=== PATIENT | female | born 1955 | race Caucasian/White ===

== ENCOUNTER 2016-06-16 10:42 | Outpatient (CLI) | payer OTHER | END 2016-06-16 10:43 | disposition home or self-care (01) | DX: E05.00 Thyrotoxicosis with diffuse goiter without thyrotoxic crisis or storm (principal) ==

== ENCOUNTER 2016-08-07 08:00 | Outpatient (CLI) | payer OTHER | END 2016-08-07 23:59 | DX: E05.00 Thyrotoxicosis with diffuse goiter without thyrotoxic crisis or storm (principal) ==

== ENCOUNTER 2016-10-10 09:45 | Outpatient (CLI) | payer OTHER ==
[2016-10-10 14:40] LABS: THYROID STIMULATING HORMONE < 0.08 uIU/mL (0.34-5.60)
== END 2016-10-10 09:46 | disposition home or self-care (01) ==
LOC: LAB.N 09:45
PROVIDERS: ATTEND Nurse Practitioner
DX: E89.0 Postprocedural hypothyroidism (principal)
CPT/HCPCS: 36415; 84439; 84443

== ENCOUNTER 2016-12-12 08:00 | Outpatient (CLI) | payer OTHER ==
[2016-12-12 20:51] LABS: THYROID STIMULATING HORMONE 0.2 uIU/mL (0.34-5.60)
== END 2016-12-12 08:01 | disposition home or self-care (01) ==
LOC: LAB.N 08:00
PROVIDERS: ATTEND Internal Medicine Endocrinology, Diabetes & Metabolism
DX: E89.0 Postprocedural hypothyroidism (principal)
CPT/HCPCS: 36415; 84439; 84443

== ENCOUNTER 2017-05-04 13:17 | Outpatient (CLI) | payer OTHER | END 2017-05-04 13:18 | disposition home or self-care (01) | LOC: LAB.N 13:17 | PROVIDERS: ATTEND Internal Medicine Endocrinology, Diabetes & Metabolism | DX: E89.0 Postprocedural hypothyroidism (principal) | CPT/HCPCS: 36415; 84443 ==

== ENCOUNTER 2017-07-13 07:00 | Outpatient (CLI) | payer OTHER ==
[2017-07-13] MEDS ORDERED: BARIUM SULFATE 135 ML BOTTLE PO ONE (10:17)
[2017-07-13] MEDS ORDERED: BARIUM SULFATE 176 GM BOTTLE PO ONE (10:17)
--- NOTE | 2017-07-13 12:42 | XRAY Report ---
ESOPHAGRAM: 07/13/2017 HISTORY: Chronic sinusitis, coughing with phlegm, reflux. FINDINGS: The patient was given thin and thick barium to swallow by mouth. There is no evidence of penetration or aspiration or cricopharyngeus dysfunction. There is mild presbyesophagus with a lack of secondary stripping waves and occasional tertiary contractions. A 13 mm barium tablet passes easily through the esophagus into the stomach. No evidence of stricture, hiatal hernia, or reflux. Fluoroscopy time: 2 minutes 47 seconds Number of images: 10 IMPRESSION: MILD EARLY AGE-RELATED ESOPHAGEAL DYSMOTILITY. OTHERWISE, NEGATIVE BARIUM SWALLOW. TD: 07/13/2017 12:41 JOAN
--- NOTE | 2017-07-13 12:51 | CT Report ---
SINUS CT: 07/13/2017 HISTORY: Chronic sinusitis, deviated septum, nasal obstruction. COMPARISON: None. TECHNIQUE: Axial noncontrast images of the sinuses with coronal and sagittal reconstructions. FINDINGS: Frontal sinuses have not developed. Sphenoid sinuses are clear. Mild membrane thickening in the ethmoid sinuses bilaterally. Mild lobulated inferior bilateral maxillary sinus membrane thickening. Anterior nasal septal deviation to the right. Nasal cavity otherwise unremarkable. Nasopharyngeal soft tissues not enlarged. C1-2 and temporomandibular joints anatomically aligned. Orbits appear symmetric. No radiopaque orbital foreign body. IMPRESSION: MILD MEMBRANE THICKENING, BILATERAL MAXILLARY GREATER THAN ETHMOID SINUSES. ANTERIOR NASAL SEPTAL DEVIATION TO THE RIGHT. In accordance with CT protocol optimization, one or more of the following dose reduction techniques were utilized for this exam: automated exposure control, adjustment of mA and/or KV based on patient size, or use of iterative reconstructive technique. TD: 07/13/2017 12:49 JOAN
== END 2017-07-13 07:01 | disposition home or self-care (01) ==
LOC: DI 07:00
PROVIDERS: ATTEND Otolaryngology
DX: J32.8 Other chronic sinusitis (principal); J34.2 Deviated nasal septum; J34.89 Other specified disorders of nose and nasal sinuses; K21.9 Gastro-esophageal reflux disease without esophagitis; R05 Cough; R49.0 Dysphonia; R13.19 Other dysphagia; K22.4 Dyskinesia of esophagus
CPT/HCPCS: 70486; 74220; A9270

== ENCOUNTER 2017-08-17 08:00 | Outpatient (CLI) | payer OTHER | END 2017-08-17 08:01 | disposition home or self-care (01) | LOC: LAB.N 08:00 | PROVIDERS: ATTEND Internal Medicine Endocrinology, Diabetes & Metabolism | DX: E89.0 Postprocedural hypothyroidism (principal) | CPT/HCPCS: 36415; 84443 ==

== ENCOUNTER 2017-09-28 13:23 | Outpatient (CLI) | payer OTHER | END 2017-09-28 13:24 | disposition home or self-care (01) | LOC: LAB.N 13:23 | PROVIDERS: ATTEND Internal Medicine Endocrinology, Diabetes & Metabolism | DX: E05.90 Thyrotoxicosis, unspecified without thyrotoxic crisis or storm (principal) | CPT/HCPCS: 36415; 84443 ==

== ENCOUNTER 2018-06-08 09:13 | Outpatient (CLI) | payer OTHER ==
[2018-06-08 13:15] LABS: THYROID STIMULATING HORMONE 0.18 uIU/mL (0.34-5.60)
[2018-06-08 13:17] LABS: FREE T4 (FREE THYROXINE) 1.04 ng/dL (0.58-1.64)
== END 2018-06-08 23:59 | disposition home or self-care (01) ==
LOC: LAB.N 09:13
PROVIDERS: ATTEND Internal Medicine Endocrinology, Diabetes & Metabolism
DX: E89.0 Postprocedural hypothyroidism (principal); E05.90 Thyrotoxicosis, unspecified without thyrotoxic crisis or storm
CPT/HCPCS: 36415; 84439; 84443

== ENCOUNTER 2019-08-06 14:03 | Emergency (ER) | payer OTHER ==
[2019-08-06] MEDS ORDERED: LORazepam 2 MG/ML VIAL IVP STA (14:22)
--- NOTE | 2019-08-06 14:24 | ED Physician Documentation ---
PD HPI HEADACHE - Stated complaint Stated Complaint: SOA,VISION DISTURBANCE - Chief complaint Chief Complaint: Neuro - History obtained from History obtained from: Family - History of Present Illness Timing - onset: Other (63-year-old woman with history of frequent headaches presents accompanied by her . She has had a headache for about a week. She was seen in the [place] [facility] and prescribed zolpidem because it was thought to be due to poor sleep. Today she was complaining about visual deficits, and now has not spoken in the last 2 hours because she is visibly having a panic attack and hyperventilating.) Review of Systems Unable to obtain: Other (Too panicky to talk) PD PAST MEDICAL HISTORY - Past Medical History Past Medical History: Yes Cardiovascular: Hypertension - Present Medications Home Medications: Ambulatory Orders Medication Instructions Recorded Confirmed Aspirin [Aspir 81] 81 mg PO DAILY 08/17/12 07/26/19 Ferrous Sulfate 324 mg PO DAILY 08/17/12 07/26/19 Multivitamin [Multivitamins] 1 each PO DAILY 08/17/12 07/26/19 Levothyroxine Sodium [Synthroid] 75 mcg PO DAILY 02/24/17 07/26/19 Anagrelide HCl 1 mg PO BID #180 capsule 08/20/17 07/26/19 Loratadine [Claritin] 1 cap PO DAILY 07/26/19 07/26/19 Omeprazole 1 cap PO DAILY 07/26/19 07/26/19 Lisinopril [Prinivil] 10 mg PO DAILY 08/05/19 08/05/19 Zolpidem Tartrate 10 mg PO DAILY PM PRN 08/05/19 08/05/19 ALPRAZolam [Alprazolam] 0.5 mg PO BID PRN #15 tablet 08/06/19 - Allergies Allergies/Adverse Reactions: Allergies Allergy/AdvReac Type Severity Reaction Status Date / Time betadine AdvReac Mild Rash Uncoded 07/26/19 11:03 - Social History Does the pt smoke?: No Smoking Status: Never smoker Does the pt drink ETOH?: No Does the pt have substance abuse?: No - Immunizations Immunizations are current?: Yes - POLST Patient has POLST: No PD ED PE NORMAL - Vitals Vital signs reviewed: Yes - General General: Other (She follows commands in all 4 extremities but she is clearly hyperventilating too much to be able to talk. We are trying to slow down her breathing using talk therapy during initial evaluation which was NOT SUCCESSFUL) - HEENT HEENT: PERRL - Neck Neck: Supple, no meningeal sign, No bony TTP - Cardiac Cardiac: RRR, No murmur - Respiratory Respiratory: Other (Tachypneic but clear) - Abdomen Abdomen: Non tender - Extremities Extremities: No edema, No calf tenderness / cord - Neuro Neuro: No motor deficit, No sensory deficit Eye Opening: To Voice Motor: Obeys Commands Verbal: None GCS Score: 10 Results - Vitals Vitals: Vital Signs - 24 hr 08/06/19 08/06/19 08/06/19 14:08 14:41 15:20 Temperature 36.3 C L Heart Rate 87 86 91 Respiratory 40 H 18 16 Rate Blood Pressure 137/74 H 129/100 H 121/72 O2 Saturation 100 100 100 08/06/19 08/06/19 08/06/19 15:30 16:00 16:30 Temperature Heart Rate 86 82 77 Respiratory 15 16 21 Rate Blood Pressure 121/72 119/63 110/70 O2 Saturation 100 100 100 Oxygen O2 Source Room air - Labs Labs: Laboratory Tests 08/06/19 08/06/19 14:25 14:25 WBC 8.6 RBC 3.03 L Hgb 8.5 L Hct 26.3 L MCV 86.8 MCH 28.1 MCHC 32.3 RDW 15.3 H Plt Count 204 MPV 10.6 Neut # (Auto) 4.5 Lymph # (Auto) 2.1 [place] # (Auto) 1.2 H Eos # (Auto) 0.1 Baso # (Auto) 0.1 Absolute Nucleated RBC 0.05 Nucleated RBC % 0.6 Manual Slide Review Indicated Platelet Estimate NORMAL (130-450,000) Platelet Morphology NORMAL APPEARANCE RBC Morph Micro Appear 1+ TEARDROP CELLS Sodium 132 L Potassium 4.3 Chloride 96 L Carbon Dioxide 23 Anion Gap 13.0 BUN 27 H Creatinine 1.2 H Estimated GFR (MDRD) 46 L Glucose 112 H Calcium 9.4 Total Bilirubin 0.4 AST 28 ALT 14 Alkaline Phosphatase 92 Total Protein 8.2 Albumin 4.4 Globulin 3.8 Albumin/Globulin Ratio 1.2 Lipase 46 - Rads (name of study) CT/CTA Head Radiology: EMP read contemporaneously (normal) PD MEDICAL DECISION MAKING - ED course ED course: 63-year-old woman presents with a week of intermittent headaches, on initial evaluation she was having a panic attack and could history. After the administration of Ativan, her symptoms resolved, both headache, visual symptoms, and inability to speak. Her neurologic exam at that juncture was normal. CT angiogram of the head was normal. She has no fever, no neck stiffness. Departure - Departure Disposition: 01 Home, Self Care Clinical Impression: Anxiety attack Headache Qualifiers: Headache type: tension-type Headache chronicity pattern: acute headache Intractability: not intractable Qualified Code(s): G44.209 - Tension-type headache, unspecified, not intractable Condition: Good Record reviewed to determine appropriate education?: Yes Instructions: ED Stress React, ED Headache Tension Prescriptions: ALPRAZolam [Alprazolam] 0.5 mg PO BID PRN #15 tablet PRN Reason: anxiety or headache Comments: Followup with you primary care physician, next available appointment. Discharge Date/Time: 08/06/19 16:45
[2019-08-06] MEDS ORDERED: IOVERSOL 320 100 ML VIAL IVP ONE ×2 (14:28→15:28)
[2019-08-06 14:37] LABS: BASOPHILS # (AUTO) 0.1 10^3/uL (0.0-0.1); BASOPHILS % (AUTO) 0.6 %; EOSINOPHILS # (AUTO) 0.1 10^3/uL (0.0-0.7); EOSINOPHILS % (AUTO) 0.7 %; HGB - HEMOGLOBIN 8.5 g/dL (12.0-16.0); LYMPHOCYTES # (AUTO) 2.1 10^3/uL (1.5-3.5); LYMPHOCYTES % (AUTO) 24.1 %; MEAN CORPUSCULAR HEMOGLOBIN 28.1 pg (27.0-31.0); MEAN CORPUSCULAR HGB CONC 32.3 g/dL (32.0-36.0); MEAN CORPUSCULAR VOLUME 86.8 fL (81.0-99.0); MEAN PLATELET VOLUME 10.6 fL (7.9-10.8); MONOCYTES # (AUTO) 1.2 10^3/uL (0.0-1.0); MONOCYTES % (AUTO) 13.7 %; NEUTROPHILS # (AUTO) 4.5 10^3/uL (1.5-6.6); NEUTROPHILS % (AUTO) 51.6 %; PLT - PLATELET COUNT 204 10^3/uL (130-450); RED BLOOD COUNT 3.03 10^6/uL (4.20-5.40); RED CELL DISTRIBUTION WIDTH 15.3 % (12.0-15.0); WHITE BLOOD COUNT 8.6 x10^3/uL (4.8-10.8)
[2019-08-06 14:51] LABS: ALBUMIN 4.4 g/dL (3.2-5.5); ALBUMIN/GLOBULIN RATIO 1.2 (1.0-2.2); BILIRUBIN,TOTAL 0.4 mg/dL (0.2-1.0); CALCIUM 9.4 mg/dL (8.5-10.3); CREATININE 1.2 mg/dL (0.4-1.0); TOTAL PROTEIN 8.2 g/dL (6.7-8.2)
[2019-08-06 15:13] LABS: PLATELET ESTIMATE, MANUAL NORMAL (130-450,000) (NORMAL); PLATELET MORPHOLOGY NORMAL APPEARANCE (NORMAL)
--- NOTE | 2019-08-06 16:07 | CT Report ---
Reason: headache Procedure Date: 08/06/2019 Accession Number: [id number] / [id number] Procedure: CT - ANGIO HEAD W/WO CPT Code: Final Report FULL RESULT: EXAM: CT ANGIOGRAM HEAD. CT SCAN OF THE HEAD WITHOUT AND WITH CONTRAST. EXAM DATE: 08/06/2019 03:24 PM CLINICAL HISTORY: 63-year-old female. Headache. COMPARISON: SINUSES 07/13/2017 7:10 AM. TECHNIQUE: - CT Scan Head: Using a multidetector scanner, axial images were acquired from the foramen magnum to the skull vertex prior to and following contrast administration. - CT Angiogram: Using a multidetector scanner, high-resolution axial images were acquired from the skull base through vertex following rapid infusion of intravenous contrast. Reformats: Multiplanar MIP reformats were reconstructed. NASCET criteria used for stenosis measurement. IV Contrast: OPTIRAY 320. In accordance with CT protocol optimization, one or more of the following dose reduction techniques were utilized for this exam: automated exposure control, adjustment of mA and/or KV based on patient size, or use of iterative reconstructive technique. FINDINGS: NON-CONTRAST HEAD: Parenchyma: No intraparenchymal hemorrhage. No evidence of mass, midline shift, or CT findings of infarction. Santiago-white differentiation is distinct. Extraaxial Spaces: Normal for age. No subdural or epidural collections identified. Ventricles: Normal in size and position. Sinuses and orbits: Imaged paranasal sinuses, orbits, and mastoids show no significant abnormality. Bones: No evidence of fracture or calvarial defect. Other: None. POST-CONTRAST HEAD: No abnormal enhancement. CT ANGIOGRAM HEAD: RIGHT: Internal Carotid artery: No evidence of dissection. No evidence of aneurysm along the intracranial ICA. Anterior Cerebral Artery: Several focal stenoses throughout the A2 and more distal segments (for example series 14 image 75) of the right SHAKEEL Middle Cerebral Artery: Several focal stenoses M2 and more distal segments of the right MCA (for example series 14 image 102) Posterior Cerebral Artery: Patent without significant stenosis, aneurysm, or vascular malformation. Posterior Communicating Artery: Patent. No aneurysm. Vertebral Artery: Patent without significant stenosis. No evidence of dissection. LEFT: Internal Carotid artery: No evidence of dissection. No evidence of aneurysm along the intracranial ICA. Anterior Cerebral Artery: Several focal stenoses throughout the A2 and more distal segments (for example series 14 image 75) of the left SHAKEEL Middle Cerebral Artery: Several focal stenoses M2 and more distal segments of the left MCA (for example series 14 image 38) Posterior Cerebral Artery: Patent without significant stenosis, aneurysm, or vascular malformation. Posterior Communicating Artery: Patent. No aneurysm. Vertebral Artery: Patent without significant stenosis. No evidence of dissection. CENTRAL: Anterior Communicating Artery: Patent. No aneurysm. Basilar Artery: Patent without significant stenosis. No aneurysm. DURAL VENOUS SINUSES AND MAJOR CENTRAL VEINS: Patent. IMPRESSION: CT HEAD: 1. No evidence of acute intracranial abnormality on the noncontrast CT head. Specifically, no evidence of acute infarct, intracranial hemorrhage, mass effect, midline shift, or hydrocephalus. 2. No abnormal enhancement on the postcontrast CT head. CTA HEAD: 1. Several focal stenoses A2 and more distal segments of the ACAs bilaterally and M21 more distal segments of the MCAs bilaterally. The appearance suggests RCVS versus vasculitis. This may also represent the etiology for the patient's headache. 2. No CTA evidence of large vessel occlusion, acute dissection, aneurysm, or vascular malformation within intracranial arteries. RADIA
[2019-08-06 16:32] VITALS: BP 110/70
== END 2019-08-06 16:45 | disposition home or self-care (01) ==
LOC: ED 14:03
DX: F41.0 Panic disorder [episodic paroxysmal anxiety] (principal); G44.209 Tension-type headache, unspecified, not intractable; I10 Essential (primary) hypertension
CPT/HCPCS: 36415; 70496; 80053; 83690; 85025; 96374; 99281; 99284; J2060; Q9967

== ENCOUNTER 2019-11-04 07:59 | Outpatient (CLI) | payer OTHER ==
--- NOTE | 2019-11-07 07:58 | Mammography Report ---
Reason: screening mammo Procedure Date: 11/04/2019 Accession Number: [id number] / [id number] Procedure: MGN - Screening Mammo w/Cedric CPT Code: Final Report FULL RESULT: BILATERAL DIGITAL SCREENING MAMMOGRAM 3D/2D: 11/04/2019 CLINICAL: Routine screening. Comparison is made to exam dated: 01/11/2015 mammogram - [facility]. The tissue of both breasts is heterogeneously dense. This may lower the sensitivity of mammography. No significant masses, calcifications, or other findings are seen in either breast. There has been no significant interval change. IMPRESSION: NEGATIVE There is no mammographic evidence of malignancy. A 1 year screening mammogram is recommended. This exam was interpreted at Station ID: [id number]. NOTE: For mammograms, a report in lay terms will be sent to the patient. Approximately 15% of breast malignancies will not be visualized mammographically. In the management of a palpable breast mass, a negative mammogram must not discourage biopsy of a clinically suspicious lesion. Electronically Signed By: Edgardo gabriel/gio:11/04/2019 13:31:04 ACR BI-RADS Category 1: Negative 3341F C -Heterogeneously dense 1 Mammogram [id number] 1 year screening B
== END 2019-11-04 08:00 | disposition home or self-care (01) ==
LOC: DI.N 07:59
DX: Z12.31 Encounter for screening mammogram for malignant neoplasm of breast (principal)
CPT/HCPCS: 77063; 77067

== ENCOUNTER 2020-07-27 13:27 | Outpatient (CLI) | payer OTHER ==
[2020-07-27 14:19] VITALS: BP 144/77
--- NOTE | 2020-07-27 14:19 | SLEEP CARE CONSULTATION ---
Information from patient questionnaire entered by Annette Elise. I have reviewed and concur with the information entered by Annette Elise. This document represents the service I personally performed and the decisions made by me, Kia Rockwell ARNP. History of Present Illness Service Date and Time: 07/27/2020 1327 Reason for Visit: New patient Chief Complaint: reports: Unrefreshed sleep, Snoring, Observed pauses in breathing, Fatigue, Frequent awakenings at night Date of Onset: Long time ago Usual bedtime: 10 PM Time it takes to fall asleep: 3 hrs Snores at night: Yes Observed to quit breathing while asleep: Yes (unsure) Sleeps alone due to snoring: No Number of times waking at night: 3 or 4 times Reasons for waking at night: reports: Bathroom. denies: Choking, Gasping for air Toss, Turn, or Twitch while sleeping: No Recalls having dreams: Yes Feels refreshed in the morning: No Morning headache: Yes (Maybe when I eat; maybe 1 time a week) Sleepy or fatigued during the day: No Ever fallen asleep while driving: No Takes day naps: No Dreams during day naps: No Prior sleep studies: No Additional HPI information: I had the pleasure of seeing JENNIFER GONZALEZ today regarding the possibility of her having a sleep disorder. Her current complaints are snoring, fatigue and frequent night awakenings. She states she doesn't sleep good. She wakes up not feeling rested. Her and her siblings have told her she snores very loudly and it is very irregular. Her has told her she stopped breathing but this was not recently. She has difficulty going to sleep, sometimes up to 3 hours. She will wake up early, like 3 AM and not be able to return to sleep. She then will try to sleep more, to 9 AM to get more sleep. She still does not feel rested. - Parasomnia Symptoms Ever been unable to move upon waking from sleep: No Walks in sleep: No Talks in sleep: No Ever acted out dreams in sleep: No Ever felt weak in the knees when startled or emotional: No Bothered by creepy, crawly, restless sensations in legs: No Problems with memory or concentration: Yes (sometimes forgetful) Subjective Initial [place] Sleepiness Scale score: 0 (in 2020) Past Medical History Past Medical History: reports: Hypertension, Hypothyroidism, Anemia, GERD, Other (high platelets) Social History The patient's occupation is unemployed. Patient is and lives in [place]. Have you smoked in the past 12 months: No Alcohol use: No Caffeine use: No Family History Family history of sleep disordered breathing: No Family Hx Sleep Apnea: Mother: Snoring, Sibling: Snoring Allergies and Home Medications Drug allergies reviewed: Yes (betadine) Home medication list reviewed: Yes Allergy and home medication list: Losartan Synthroid Baby aspirin Zaleplon for sleep Flonase, as needed Review of Systems Cardiovascular: reports: high blood pressure Ear/Nose/Throat: reports: hoarseness, wisdom teeth removed. denies: tonsillectomy Endocrine: reports: thyroid disease Immunologic: reports: allergies to food or environment (seasonal) Physical Exam Blood Pressure: 144/77 Cuff size: wrist Heart Rate: 71 O2 Saturation: 91 Height: 5 ft 2 in Weight: 124 lb Body Mass Index: 22.6 BMI Classification: Healthy weight Nostrils: patent to airflow Mouth and throat: narrow oropharynx Soft palate: long Uvula visualization: 50% Mallampati Class II Tongue: enlarged in size with teeth gracia on lateral edges Tonsils: 1+ Heart: regular rate and rhythm Lungs: clear bilaterally Impression and Plan 1. Suspected Obstructive Sleep Apnea-Hypopnea Syndrome, as suggested by a history of loud and irregular snoring, observed cessation of breath while asleep, morning headache, frequent awakening during the night, unrefreshed sleep, cognitive impairment, and excessive daytime sleepiness. Narrow oropharynx and obesity are common predisposing factors for obstructive sleep apnea-hypopnea syndrome. I recommend proceeding to polysomnography to confirm the diagnosis and to assess severity. If the patient has significant sleep disordered breathing, a manual CPAP titration study will also be performed to find the optimal treatment pressure. I informed the patient of what the sleep studies involve and after some discussion, obtained agreement to proceed. The pathophysiology of obstructive sleep apnea-hypopnea syndrome was discussed with the patient and health risks of cardiovascular and cerebrovascular disease if not treated. Risks of drowsy driving discussed in detail and patient advised to avoid long distance driving and to hook puller at the first sign of drowsiness. Patient agreed to plan. * Schedule polysomnography +- manual CPAP titration study and return in 1-2 weeks after the study to discuss result and initiate therapy. * Avoid long distance driving or driving when feeling sleepy. * Avoid alcohol, sedative and muscle relaxant around bedtime. * Attempt to lose weight. * Review instructions provided by trained office staff on how to prepare for the sleep study. * Return for follow-up after sleep study completed. Counseling Topics: Weight control Visit Type: In Office Time Spent with Patient (minutes): 30 Provider Statement: I spent 100% of the Face to Face Visit with the patient with greater than 50% spent counseling the patient and coordination of care.
== END 2020-07-27 13:28 | disposition home or self-care (01) ==
LOC: SC 13:27
PROVIDERS: ATTEND Nurse Practitioner Family
DX: G47.10 Hypersomnia, unspecified (principal); R51.9 Headache, unspecified; G47.8 Other sleep disorders; R06.81 Apnea, not elsewhere classified; R41.89 Other symptoms and signs involving cognitive functions and awareness
CPT/HCPCS: 99203; 99212

== ENCOUNTER 2020-08-01 08:27 | Outpatient (CLI) | payer OTHER | END 2020-08-01 08:28 | disposition home or self-care (01) | LOC: SC 08:27 | PROVIDERS: ATTEND Nurse Practitioner Family | DX: G47.33 Obstructive sleep apnea (adult) (pediatric) (principal); R09.02 Hypoxemia | CPT/HCPCS: 95806 ==

== ENCOUNTER 2020-08-06 14:39 | Outpatient (CLI) | payer OTHER ==
--- NOTE | 2020-08-07 08:50 | SLEEP CARE CONSULTATION ---
Information from patient questionnaire entered by Annette Elise. I have reviewed and concur with the information entered by Annette Elise. This document represents the service I personally performed and the decisions made by me, Elvia Mirza MD, [facility]. History of Present Illness Service Date and Time: 08/06/2020 1439 Initial [place] Sleepiness Scale score: 0 (in 2020) Current [place] Sleepiness Scale score: 0 Additional HPI information: Ms. Mcgregor returned for follow up of the sleep study she had on 08/01/2020. The test showed mild obstructive sleep apnea-hypopnea with an AHI of 8.5 and richie oxygen saturation of 84%. The patient only slept supine during this study. The patient was informed of these findings. I explained to her the pathophysiology behind obstructive sleep apnea. We then spent quite a bit of time discussing different treatment options. For mild obstructive sleep apnea, surgery and oral appliance are alternatives to nasal CPAP therapy but in moderate or severe cases, nasal CPAP is the most effective and reliable treatment. After some discussion, she opted to go with the nasal CPAP therapy. I explained to her how CPAP machine works and what to expect when using the machine. She is somewhat familiar with the treatment because her used CPAP at one time. Sleep Study - Results Type of Sleep Study: Home sleep study Prior sleep studies: No Allergies and Home Medications Drug allergies reviewed: Yes Home medication list reviewed: Yes Review of Systems Review of systems same as previous: Yes Physical Exam Height: 5 ft 2 in Weight: 124 lb Body Mass Index: 22.6 BMI Classification: Healthy weight Impression and Plan IMPRESSION: 1. Obstructive Sleep Apnea-Hypopnea Syndrome, mild, associated with mild hypoxemia. Possibly this is the cause of the patients symptoms of frequent awakenings, unrefreshed sleep, and fatigue. As mentioned above, the patient will be started on autoCPAP set between 4 and 12 cmH2O. Depending on her response and compliance she may be brought back for an overnight CPAP titration study. 2. Insomnia due to excessive time spent in bed. The home sleep apnea test (HSAT) showed that she started the test at 9 pm and did not finish until 9 am. Apparently, that is her normal sleep-wake schedule. I explained to her that it is impossible to not have insomnia when one spends that many hours in bed. She admits that she wants to sleep more because she feels tired and has nothing to do (a.k.a. psychophysiological insomnia). She is prescribed with sleep aid which she takes regularly at 9 pm. We instructed her to reduce time spent in bed to 8 hours and get up out of bed the same time every morning. She chose 10 pm to 6 am. PLAN: 1. Prescription made for an autoCPAP, heated humidifier, and related supplies. 2. Maintain a regular wake up time and spend no more than 8 hours in bed at night. Avoid naps. 3. Continue with the sleeping pills for now but she should wean off them once she is established on the new sleep-wake pattern. 4. Return for follow up after one month of using the CPAP. Visit Type: In Office Time Spent with Patient (minutes): 30 Provider Statement: I spent 100% of the Face to Face Visit with the patient with greater than 50% spent counseling the patient and coordination of care.
== END 2020-08-06 14:40 | disposition home or self-care (01) ==
LOC: SC 14:39
PROVIDERS: ATTEND Internal Medicine Pulmonary Disease
DX: G47.33 Obstructive sleep apnea (adult) (pediatric) (principal); G47.00 Insomnia, unspecified
CPT/HCPCS: 99212; 99213

== ENCOUNTER 2021-01-03 11:08 | Outpatient (CLI) | payer OTHER ==
--- NOTE | 2021-01-04 08:42 | Mammography Report ---
BILATERAL DIGITAL SCREENING MAMMOGRAM 3D/2D: 01/03/2021 CLINICAL: Routine screening. Comparison is made to exams dated: 11/04/2019 mammogram, 01/11/2015 mammogram - [facility], 08/12/2011 mammogram, and 07/10/2010 mammogram - [facility]. There are scattered fibro glandular elements in both breasts. No significant masses, calcifications, or other findings are seen in either breast. There has been no significant interval change. IMPRESSION: NEGATIVE There is no mammographic evidence of malignancy. A 1 year screening mammogram is recommended. This exam was interpreted at Station ID: [id number]. NOTE: For mammograms, a report in lay terms will be sent to the patient. Approximately 15% of breast malignancies will not be visualized mammographically. In the management of a palpable breast mass, a negative mammogram must not discourage biopsy of a clinically suspicious lesion. Electronically Signed By: Josh Kang M.D. aty/penrad:01/03/2021 11:35:47 ACR BI-RADS Category 1: Negative 3341F PARENCHYMAL PATTERN: (A) - The breast(s) demonstrate(s) scattered fibroglandular densities. BI-RADS CATEGORY: (1) - 1 RECOMMENDATION: (ANNUAL) - Recommend routine annual screening mammography. [id number] 1 year screening LATERALITY: (B)
== END 2021-01-03 11:09 | disposition home or self-care (01) ==
LOC: DI.N 11:08
DX: Z12.31 Encounter for screening mammogram for malignant neoplasm of breast (principal)

== ENCOUNTER 2021-10-11 10:29 | Outpatient (CLI) | payer OTHER ==
[2021-10-11 10:50] LABS: CREATININE 1.1 mg/dL (0.4-1.0)
== END 2021-10-11 10:30 | disposition home or self-care (01) ==
LOC: LAB 10:29
PROVIDERS: ATTEND Internal Medicine Nephrology
DX: N05.9 Unspecified nephritic syndrome with unspecified morphologic changes (principal)
CPT/HCPCS: 36415; 82565

== ENCOUNTER 2023-04-26 11:06 | Emergency (ER) | payer MEDICARE, OTHER ==
[2023-04-26 11:29] VITALS: O2SAT 100
--- NOTE | 2023-04-26 12:07 | ED Physician Documentation ---
History of Present Illness - Stated complaint Stated Complaint: SYNCOPAL EPISODE - Chief complaint Chief Complaint: Neuro - History obtained from History obtained from: Patient, Family, EMS - History of Present Illness Timing: Enter time, Today Pain level max: 0 Pain level now: 0 - Additonal information Additional information: Patient is a 67-year-old female with a history of myeloproliferative neoplasm with secondary myelofibrosis. History of moderate to severe anemia. Scheduled to have a stem cell transplant potentially. She has a appointment at [facility] in [place] on April 30. She states that she has had 1 syncopal event in the past and that was when her hemoglobin was low. She states that she did not eat this morning, only drank a little bit of fluid. She states that she knelt down in [facility], felt lightheaded and like the room was going "black". Unclear if she actually passed out or not. Patient had no chest pain. No shortness of breath. No nausea. No vomiting. No fall. No head injury. Currently she states that she feels better. She does have a history of chronic kidney disease. She was reported to have 4% bands on her last CBC. Review of Systems Constitutional: denies: Fever, Chills Nose: denies: Rhinorrhea / runny nose, Congestion Respiratory: denies: Cough GI: denies: Nausea, Vomiting, Diarrhea Skin: denies: Rash Musculoskeletal: denies: Neck pain, Back pain Neurologic: denies: Headache PD PAST MEDICAL HISTORY - Past Medical History Past Medical History: Yes Cardiovascular: Hypertension : Renal insuffiency - Past Surgical History Past Surgical History: Yes /BOX[employer]STRU[employer]: section - Present Medications Home Medications: Ambulatory Orders Medication Instructions Recorded Confirmed Aspirin [Aspir 81] 81 mg PO DAILY 08/17/12 04/07/23 Anagrelide HCl 1 mg PO BID #180 capsule 08/20/17 04/07/23 ALPRAZolam [Alprazolam] 0.5 mg PO BID PRN #15 tablet 08/06/19 04/07/23 Amlodipine Besylate [Norvasc] 5 mg ORAL DAILY 04/26/23 04/26/23 Cholecalciferol [Vitamin D3] 800 unit PO DAILY 04/26/23 04/26/23 Levothyroxine Sodium [Synthroid] 137 mcg ORAL QDAC 04/26/23 04/26/23 - Allergies Allergies/Adverse Reactions: Allergies Allergy/AdvReac Type Severity Reaction Status Date / Time betadine AdvReac Mild Rash Uncoded 04/26/23 11:22 - Social History Does the pt smoke?: No Smoking Status: Never smoker Does the pt drink ETOH?: No Does the pt have substance abuse?: No - Immunizations Immunizations are current?: Yes - POLST Patient has POLST: No PD ED PE NORMAL - Vitals Vital signs reviewed: Yes - General General: Alert and oriented X 3, No acute distress - HEENT HEENT: Moist mucous membranes - Neck Neck: Supple, no meningeal sign - Cardiac Cardiac: RRR - Respiratory Respiratory: No respiratory distress, Clear bilaterally - Derm Derm: Warm and dry - Extremities Extremities: No edema, No calf tenderness / cord - Neuro Neuro: Alert and oriented X 3 - Psych Psych: Normal mood, Normal affect Results - Vitals Vitals: Vital Signs - 24 hr 04/26/23 04/26/23 11:07 13:34 Temperature 36 C L Heart Rate 69 68 Respiratory 16 16 Rate Blood Pressure 117/66 139/69 H O2 Saturation 100 100 Oxygen O2 Source Room air - EKG (time done) 1123 EKG releavant findings:: EKG personally interpreted by author of this note. Relevant findings are: Rate: Rate (enter#) (70) Rhythm: NSR [place]: Normal Intervals: Normal [place] QRS: Normal Ischemia: Normal ST segments - Labs Labs: Laboratory Tests 04/26/23 04/26/23 11:50 11:50 WBC 15.0 H RBC 3.07 L Hgb 8.3 L Hct 27.3 L MCV 88.9 MCH 27.0 MCHC 30.4 L RDW 15.3 H Plt Count 519 H MPV 9.7 Neut # (Auto) Not Reportable Lymph # (Auto) Not Reportable Bennett # (Auto) Not Reportable Eos # (Auto) Not Reportable Baso # (Auto) Not Reportable Absolute Nucleated RBC Not Reportable Total Counted 100 Band Neuts % (Manual) 24 H Abnorm Lymph % (Manual) 0 Metamyelocytes % 8 H Myelocytes % 11 H Blast Cells % 5 H* Nucleated RBC % Not Reportable Neutrophils # (Manual) 7.1 H Lymphocytes # (Manual) 1.8 Monocytes # (Manual) 1.7 H Eosinophils # (Manual) 0.6 Basophils # (Manual) 0.3 H Differential Comment MANUAL DIFFERENTIAL RBC Morph Micro Appear 1+ TEARDROP CELLS Sodium 135 Potassium 4.3 Chloride 100 L Carbon Dioxide 26 Anion Gap 9.0 BUN 22 H Creatinine 1.3 Estimated GFR (MDRD) 41 L Glucose 89 Calcium 9.2 Total Bilirubin 0.3 AST 28 ALT 9 L Alkaline Phosphatase 102 Troponin I High Sens 4.9 Total Protein 7.4 Albumin 4.0 Globulin 3.4 Albumin/Globulin Ratio 1.2 Lipase 35 - Rads (name of study) cxr Relevant Findings:: Final report received, See rad report PD Medical Decision Making - ED course Complexity details: reviewed results, re-evaluated patient, considered differential, d/w patient, d/w family ED course: Patient is asymptomatic here. Tolerating p.o. without difficulty. Ambulating with a normal gait. No dizziness, lightheadedness. She does appear mildly dehydrated but declines IV fluids. No significant lab abnormalities other than her chronic anemia. She does not need a transfusion at this time. No cardiac abnormalities. No arrhythmia on telemetry monitoring. No acute findings on chest x-ray. No acute findings on EKG. We will have the patient follow-up with her doctor for further care. Suspect that her vasovagal near syncope was secondary to not eating and drinking this morning coupled with her chronic anemia, dehydration and her myelofibrosis. Patient counseled regarding signs and symptoms for which I believe and urgent re-evaluation would be necessary. Patient with good understanding of and agreement to plan and is comfortable going home at this time This document was made in part using voice recognition software. While efforts are made to proofread this document, sound alike and grammatical errors may occur. Departure - Departure Disposition: 01 Home, Self Care Clinical Impression: Vasovagal syncope Condition: Good Instructions: ED Syncope Vasovagal Follow-Up: your,doctor in 1 week [Other] Comments: Please follow-up with your doctor as scheduled later this week. Please make sure you are drinking plenty of fluids at home and eating every morning. Please return if you worsen. Forms: PCP List Discharge Date/Time: 04/26/23 13:34
[2023-04-26 12:17] LABS: BASOPHILS % (AUTO) 2.8 %; EOSINOPHILS % (AUTO) 1.7 %; HCT - HEMATOCRIT 27.3 % (37.0-47.0); HGB - HEMOGLOBIN 8.3 g/dL (12.0-16.0); LYMPHOCYTES % (AUTO) 14.8 %; MEAN CORPUSCULAR HGB CONC 30.4 g/dL (32.0-36.0); MEAN CORPUSCULAR VOLUME 88.9 fL (81.0-99.0); MEAN PLATELET VOLUME 9.7 fL (7.9-10.8); MONOCYTES % (AUTO) 13.5 %; NEUTROPHILS % (AUTO) 40.3 %; PLT - PLATELET COUNT 519 10^3/uL (130-450); RED BLOOD COUNT 3.07 10^6/uL (4.20-5.40); RED CELL DISTRIBUTION WIDTH 15.3 % (12.0-15.0)
[2023-04-26 12:33] LABS: ABNORMAL LYMPHS % (MANUAL) 0 %
[2023-04-26 12:40] LABS: ALBUMIN/GLOBULIN RATIO 1.2 (1.0-2.2); BILIRUBIN,TOTAL 0.3 mg/dL (0.2-1.0); CALCIUM 9.2 mg/dL (8.5-10.3); CREATININE 1.3 mg/dL (0.6-1.3); POTASSIUM 4.3 mmol/L (3.5-4.5); TOTAL PROTEIN 7.4 g/dL (6.4-8.9)
--- NOTE | 2023-04-26 12:42 | XRAY Report ---
PROCEDURE: Chest 1V INDICATIONS: syncope TECHNIQUE: One view of the chest was acquired. COMPARISON: None. FINDINGS: Surgical changes and devices: None. Lungs and pleura: No pleural effusions or pneumothorax. Lungs are clear. Mediastinum: Mediastinal contours appear normal. Heart size is normal. Bones and chest wall: No suspicious bony lesions. Overlying soft tissues appear unremarkable. IMPRESSION: No acute cardiopulmonary process. Reviewed by: Anant Deal MD on 04/26/2023 11:41 AM [facility] Approved by: Anant Deal MD on 04/26/2023 11:41 AM [facility] Station ID: [id number]
[2023-04-26 12:46] LABS: TROPONIN I HIGH SENSITIVITY 4.9 ng/L (2.3-14.8)
[2023-04-26 12:52] LABS: BAND NEUTROPHILS % (MANUAL) 24 %; BASOPHILS # (MANUAL) 0.3 10^3/uL (0-0.1); BASOPHILS % (MANUAL) 2 %; EOSINOPHILS # (MANUAL) 0.6 10^3/uL (0-0.7); LYMPHOCYTES # (MANUAL) 1.8 10^3/uL (1.5-3.5); LYMPHOCYTES % (MANUAL) 12 %; METAMYELOCYTES % (MANUAL) 8 %; MONOCYTES # (MANUAL) 1.7 10^3/uL (0.0-1.0); MYELOCYTES % (MANUAL) 11 %; NEUTROPHILS # (MANUAL) 7.1 10^3/uL (1.5-6.6)
[2023-04-26 12:53] LABS: DIFFERENTIAL COMMENT MANUAL DIFFERENTIAL; RBC MORPHOLOGY (MULTIPLE) 1+ TEARDROP CELLS (NORMAL)
[2023-04-26 12:55] LABS: BLAST CELLS % (MANUAL) 5 %
[2023-04-26 13:40] VITALS: BP 139/69
== END 2023-04-26 13:34 | disposition home or self-care (01) ==
LOC: EDUNIT# → ED 11:06
DX: R55 Syncope and collapse (principal); I12.9 Hypertensive chronic kidney disease with stage 1 through stage 4 chronic kidney disease, or unspecified chronic kidney disease; N18.9 Chronic kidney disease, unspecified; D63.1 Anemia in chronic kidney disease
CPT/HCPCS: 36415; 80053; 83690; 84484; 85025; 93005; 99284